=== PATIENT | male | born 1960 | race Caucasian/White ===

== ENCOUNTER 2022-08-13 15:02 | Outpatient (CLI) | payer BC, SELFPAY ==
--- NOTE | 2022-08-13 15:10 | ECG_ITS ---
Measurements Intervals [place] Rate: 68 P: 54 ID: [id number] QRS: -7 QRSD: 102 T: 31 QT: 401 QTc: 429 Interpretive Statements SINUS RHYTHM WITH FREQUENT SUPRAVENTRICULAR PREMATURE COMPLEXES ABNORMAL RHYTHM ECG NO PREVIOUS ECG AVAILABLE FOR COMPARISON Electronically Signed On 08-13-2022 20:10:13 GROUND PRODUCTS DIRECTOR by Anita Mead M.D.
[2022-08-13 15:31] LABS: Hematocrit 45.6 % (42.0-52.0); Hemoglobin 15.9 g/dL (14.0-18.0); Mean Corpuscular HGB Conc 34.9 g/dl (32-36); Mean Corpuscular Hemoglobin 32.3 pg (26-34); Mean Corpuscular Volume 92.5 fl (80-100); Mean Platelet Volume 8.8 fl (7.4-10.4); Platelet Count Result 215 k/mm3 (150-375); Red Blood Count 4.93 M/mm3 (4.6-6.20); Red Cell Distribution Width 12.3 % (11.5-14.5); White Blood Count 7.5 K/mm3 (4.5-10.0)
[2022-08-13 15:33] LABS: Appearance Urine Clear (Clear); Bilirubin Urine Negative (Negative); Blood Urine Negative (Negative); Color Urine Yellow (Yellow); Glucose Urine UA Negative (Negative); Ketones Urine Negative (Negative); Leukocyte Esterase Ur Negative LEU/UL (NEGATIVE); Nitrate Urine Negative (Negative); Protein Urine Negative (Negative); Specific Grav Ur 1.015 (1.001-1.035); Urobilinogen Urine 0.2 mg/dL (<2.0); pH Urine 6.5 (5.0-9.0)
[2022-08-13 15:41] LABS: Anion Gap 7 mmol/L (8-16); Blood Urea Nitrogen 18 mg/dL (9-20); Calcium 9.3 mg/dL (8.4-10.2); Carbon Dioxide 29 mmol/L (22-30); Chloride 99 mmol/L (98-107); Estimated Glomerular Filt Rate > 60; Glucose 85 mg/dL (65-110); Potassium 3.9 mmol/L (3.4-5.0); Sodium 135 mmol/L (137-145)
[2022-08-13 15:46] LABS: Partial Thromboplastin Time 28.8 SECONDS (22.3-36.8)
[2022-08-13 15:50] LABS: Add Urine Microscopic? NO
== END 2022-08-13 15:03 | disposition home or self-care (01) ==
PROVIDERS: PCP Internal Medicine; Visit Provider Neurological Surgery
DX: Z01.818 Encounter for other preprocedural examination (principal)
CPT/HCPCS: 36415; 80048; 81003; 85027; 85610; 85730; 86850; 86900; 86901; 93005

== ENCOUNTER 2022-08-20 00:32 | Day surgery (SDC) | payer BC, SELFPAY ==
[2022-08-07 14:13] VITALS: BMI 31.6
--- NOTE | 2022-08-07 14:21 | PC.NURSE ---
Report to the Outpatient Waiting Room, entrance under the green pavilion located off [facility], at time 7:30 on date 08/20/22. Planned Procedure Time: 9:30. Time changes happen often and if your time is changed the preop area will call you the afternoon before. - You and your visitor will be asked to self-screen and do not enter if you have any COVID symptoms. - Only one visitor is requested with a max of two and NO children visitors are allowed at this time. - The patient visitor may be requested to leave or wait in car when not with patient due to distancing restrictions. - A mask is optional within the hospital at this time. Patients may have clear liquids (water, carbonated beverages, clear teas, apple juice) until 3 hours prior to surgery with a maximum of 20 ounces. - No food from midnight until time of surgery Take the following medications with a SIP of water the morning of surgery: NONE DO NOT STOP ANY OF YOUR OTHER PRESCRIPTION MEDICATIONS PRIOR TO SURGERY EXCEPT THE FOLLOWING Medications to discontinue per physician: MELOXICAM Date to take last dose: PER DR. PARKS Please no make-up, nail [place], hairspray, perfume, deodorant, or body powder the day of surgery. No jewelry (including any body piercings) or valuables the day of surgery, leave them at home. Please take a shower or bath the night before, or the morning of, surgery with an antibacterial soap. Wear comfortable, loose fitting clothing. - Jewelry must be removed prior to entering the operating room. Rings and piercings that are not removed may be cut off. - The hospital will not accept responsibility for valuables. - Please leave all valuables, including medications, at home the day of surgery. If you are going home after surgery, a licensed vibratory pile driver must drive you home. - NO public transportation without another adult if you receive anesthesia. - We recommend that an adult stay with you for 24 hours following discharge. - We also recommend that you do not drive, make important decision, drink alcoholic beverages, or take any drugs that were not prescribed by your health care provider for at least 24 hours after your discharge time. Follow any additional instructions given to you from your surgeon. If you or anyone in your household have experienced Covid symptoms in the past week, please notify your surgeon or the nurse liaison at the phone number below for possible testing. Telephone instructions given to JASPER HODGE and asked if any additional questions and then verbalized understanding. Patient advised to call surgeon office or pre surgery nurse liaison [phone] if any additional questions.
[2022-08-20] VITALS (8 sets, daily range): BP systolic 115–155; BP diastolic 46–89; PULSE 65–96; RESP 12–16; TEMP 36.1–36.4; O2SAT 94–96
--- NOTE | ~2022-08-20 | XR_ITS ---
XR fluoroscopy no charge L3-4 right hemilaminectomy and foraminotomy TECHNIQUE: Fluoroscopy used during L3-4 right hemilaminectomy and foraminotomy performed by [Yoav Kaye MD] on 08/20/2022. 3 seconds of fluoroscopy with 1 images captured. FINDINGS: Correlate with procedure note. IMPRESSION: Fluoroscopy used during L3-4 right hemilaminectomy and foraminotomy. Reviewed, dictated and finalized at location L. OR BEAUTY SALON ASSISTANT IMPRESSION: Fluoroscopy used during L3-4 right hemilaminectomy and foraminotomy .
--- NOTE | 2022-08-20 06:36 | P.PNAN_ITS ---
Anes - Initial Pre Proc Eval Procedure: Operation Date: 08/20/22 07:30 Proposed Procedures p L3-4 Right Hemilaminectomy for Synovial Cyst, Right L3-4 Far Lateral Foraminotomy - Clement Kaye MD Date/Time: 08/20/22 06:36 Surgeon: Clement Kaye MD Pre Op Diagnosis: L3-4 Stenosis Right Synovial Cyst Patient Data Age: 62 Gender: M Height: 1.78 m Weight: 99.8 kg Allergies Allergy/AdvReac Type Severity Reaction Status Date / Time No Known Drug Allergies Allergy Unknown Unknown Verified 08/07/22 14:12 Home Medications Medication Instructions Recorded Confirmed Type atorvastatin 40 mg tablet 40 mg PO DAILY 05/11/22 08/07/22 History meloxicam 15 mg tablet 15 mg PO DAILY 05/11/22 08/07/22 History rizatriptan 10 mg tablet 10 mg PO ONCE PRN migraine headache 05/11/22 08/07/22 History ropinirole 0.5 mg tablet 0.5 mg PO TID 05/11/22 08/07/22 History Patient hx anesthesia problems: none Family hx anesthesia problems: none Results Review: All pre-operative results and documents have been reviewed as part of the pre- operative evaluation. [facility] Past Medical History Medical History Cancer of skin of right ear Head injury High cholesterol Migraines Right knee meniscal tear Spine disorder Surgical History Surgical History H/O elbow surgery Right ear X3 H/O hernia repair H/O lateral meniscus repair of right knee X2 Family History Family History Other Heart attack High cholesterol Migraines Social History Social History Smoking status: Current some day smoker Tobacco type: pipe and cigars Alcohol intake: current Drinks per week: 6 Alcohol use details: occasional Substance use: never Substance use type: does not use Living arrangements: with family Spiritual care concerns: No Anes - Eval Final PreProcedure Day of Procedure 08/20/22 06:36 Patient weight: obese Heart: regular rate and rhythm Lungs: clear to auscultation Airway: Mallampati scale class II Neurological: alert and oriented Last oral intake: >/= 8 hours ASA classification: II Emergent: no Anesthetic plan: proceed Anesthesia type and monitoring: general ETT and standard monitoring Results Review: All pre-operative results and documents have been reviewed as part of the pre- operative evaluation. Informed Consent: The patient's anesthetic plan and its attendant risks and benefits were discussed with the patient/family/POA. Questions were solicited and answers provided to the satisfaction of the patient/family/POA.
[2022-08-20] MEDS: LACTATED RINGERS 1,000 ML 30 ML IV CONT ×2 (07:00→10:17)
--- NOTE | 2022-08-20 07:46 | PM.IMHP ---
H&P: HPI History of Present Illness Date/Time: 08/20/22 07:46 Chief Complaint: Lexx is a 62-year-old gentleman with back and lower extremity discomfort related to a synovial cyst and foraminal stenosis at L3-4 presents for hemilaminectomy from the right at that level. He has not changed since we saw him last. He does not have specific muscle group weakness or dermatomal numbness. He is not having bowel or bladder difficulty. Review of Systems Review of Systems: Patient denies shortness of breath, cough, fever, chills, nausea, vomiting, weight loss, weight gain, chest pain, dysuria. He has back and leg pain as above. [facility] Past Medical History Medical History Cancer of skin of right ear Head injury High cholesterol Migraines Right knee meniscal tear Spine disorder Surgical History Surgical History H/O elbow surgery Right ear X3 H/O hernia repair H/O lateral meniscus repair of right knee X2 Family History Family History Other Heart attack High cholesterol Migraines Social History Social History Smoking status: Current some day smoker Tobacco type: pipe and cigars Alcohol intake: current Drinks per week: 6 Alcohol use details: occasional Substance use: never Substance use type: does not use Living arrangements: with family Spiritual care concerns: No Meds Home Medications and Allergies Home Medications Medication Instructions Recorded Confirmed Type atorvastatin 40 mg tablet 40 mg PO DAILY 05/11/22 08/20/22 History meloxicam 15 mg tablet 15 mg PO DAILY 05/11/22 08/20/22 History rizatriptan 10 mg tablet 10 mg PO ONCE PRN migraine headache 05/11/22 08/20/22 History ropinirole 0.5 mg tablet 0.5 mg PO TID 05/11/22 08/20/22 History Allergies Allergy/AdvReac Type Severity Reaction Status Date / Time No Known Drug Allergies Allergy Unknown Unknown Verified 08/20/22 07:38 Exam Narrative: Strength is normal the bilateral lower extremities to direct confrontation. Sensation is intact to light touch throughout the lower extremities. His breathing is unlabored, he speaks in complete sentences without difficulty. Regular rate and rhythm Assessment and Plan Assessment and plan (1) Foraminal stenosis of lumbar region: Code(s): M48.061 - Spinal stenosis, lumbar region without neurogenic claudication Status: Acute (2) Synovial cyst of lumbar facet joint: Code(s): M71.38 - Other bursal cyst, other site Status: Acute (3) Lumbar stenosis: Code(s): M48.061 - Spinal stenosis, lumbar region without neurogenic claudication Status: Acute Plan Mr. August is a 62-year-old gentleman with back and leg pain related to a synovial cyst, spinal stenosis and foraminal stenosis who presents for decompression by way of right-sided hemilaminectomy at L3-4. I described to him again that operation, its risks, potential benefits, the operative and postoperative course in detail and answered all his questions personally. He indicates understanding and elects to proceed with that operation.
--- NOTE | 2022-08-20 07:48 | WPDHPUPDATE1 ---
History and Physical Update Update Date/Time: 08/20/22 07:48 History and Physical has been reviewed, including an updated exam of the patient. There are NO changes in the patient's condition. Risks, benefits, and alternatives have been discussed and questions answered. Patient agrees to proceed with procedure.
[2022-08-20] MEDS: ceFAZolin 2 GM/D5W 50 ML 2 GM/50 ML BAG IVPB (07:54)
[2022-08-20] MEDS: LIDO 1%/EPINEPHRINE 1:100,000 20 ML VIAL 10 ML INFILTRATE (08:29)
--- NOTE | 2022-08-20 09:49 | W.PM.PROC2 ---
Procedure Note - Detailed Date of Procedure 08/20/22 Pre-op Diagnosis L3-4 Stenosis Right Synovial Cyst , right L3-4 foraminal stenosis Post-op Diagnosis Same Procedure Performed right L3-4 hemilaminectomy for synovial cyst, right L3-4 far lateral foraminotomy Surgeon Clement Kaye MD [employer] Anesthesia General Description of Procedure The patient was brought to the operating room in the supine position, was sedated, intubated and placed under general anesthesia in routine fashion. He was then turned into the prone position on a Ash frame. The area of operation on his back was examined marked for incision, prepped and draped in routine sterile fashion. Incision was marked over the L3 and L4 spinous processes in the midline. This area was injected with 0.5% lidocaine with [id number] epinephrine. Intravenous antibiotics given prior to incision Incision was made with a 10 blade scalpel down to the lumbodorsal fascia. A subperiosteal dissection of the muscle soft tissue away from the spinous process and lamina on the right at L3-4 was performed with a subperiosteal elevator and Bovie cautery. Verifying x-rays obtained to verify the level of operation. At the L3-4 level on the right Midas-Moses drill was used to perform a hemilaminectomy and medial facetectomy. under microscopy the yellow ligament was lifted and removed piecemeal using Kerrison punches. The lateral resection of the pars and facet was also performed with the Midas Moses drill and likewise the yellow ligament was lifted and removed piecemeal using Kerrison punches. The thecal sac was retracted. A synovial cyst was noted inferiorly. This was entered using a curved curette. Contents of the cyst were evacuated. Kerrison punches were used to remove the cyst wall away from the dura which was not tightly adherent. This was done until a dental instrument could be placed in the lateral epidural space to confirm lack of compression. Laterally the nerve root was identified and reflected superiorly. Kerrison punches and curved curettes were used to pull free and remove overgrown bone and ligament from above the nerve in the foramen. This was done until a dental instrument could be placed proximally and distally above and below the nerve to confirm lack of compression. The wound was then copiously irrigated with bacitracin irrigation and all bleeding was stopped with bipolar cautery. The wound was then closed in layered fashion with 2-0 Vicryl interrupted sutures in the lumbodorsal fascia and Vinny's layer. 3-0 Vicryl buried interrupted sutures were placed in the dermis and the skin was closed with a running 4-0 Monocryl subcuticular stitch and dressed with Dermabond. The patient was allowed to wake up in the operating room and was taken to the recovery room in stable condition. There were no immediate complications of this operation. All counts were reported correct at the end case. Blood loss was 5 cc. The patient was neurologically at his baseline postoperatively. Estimated Blood Loss 5 IV Fluids 1,000 Complications None Condition Stable Disposition PACU [facility] Billing Surgery - Charge Forward: Surgery Billing
--- NOTE | 2022-08-20 11:05 | SUR.PHASEII ---
pt c/o mild head ache. pt said that he does get them every now and then. neuro grossly intact. pt given a pepsi for caffeine and some more gram crackers.
== END 2022-08-20 11:38 | disposition home or self-care (01) ==
PROVIDERS: PCP Internal Medicine; Visit Provider Neurological Surgery
PROC: (CPT 63030; principal; 2022-08-20 07:30)
DX: M48.061 Spinal stenosis, lumbar region without neurogenic claudication (principal); M71.38 Other bursal cyst, other site; E78.00 Pure hypercholesterolemia, unspecified; F17.290 Nicotine dependence, other tobacco product, uncomplicated; E66.9 Obesity, unspecified; Z68.31 Body mass index [BMI] 31.0-31.9, adult
CPT/HCPCS: 63267; 63056; 99199; J0330; J0690; J1100; J1170; J2250; J2405; J2704; J2710; J3010; J7120